=== PATIENT | female | born 1955 | race African-American/Black ===

== ENCOUNTER 2023-02-15 13:47 | Emergency (ER) | payer BC, OTHER ==
[2023-02-15 13:53] VITALS: BP 147/85; PULSE 85; RESP 20; TEMP 97.8; BMI 32.0
[2023-02-15 16:29] LABS: BASO % 0.6 % (0-2.0); EOS % 0.7 % (0-4.5); HEMATOCRIT 40.2 % (32.4-45.2); HEMOGLOBIN 12.9 GM/dL (10.7-15.3); LYMPH % 25.7 % (8-40); MCH 26.6 pg (25.7-33.7); MCHC 32.2 g/dl (32.0-36.0); MEAN CELL VOLUME 82.8 fl (80-96); MEAN PLT VOLUME 8.3 fl (7.5-11.1); MONO % 8.6 % (3.8-10.2); NEUT % 64.4 % (42.8-82.8); PLATELET COUNT 313 10^3/uL (134-434); RBC 4.86 M/mm3 (3.60-5.2); WHITE BLOOD COUNT 6.3 K/mm3 (4.0-10.0)
[2023-02-15 16:36] LABS: INR 1.02 (0.83-1.09); PROTHROMBIN TIME (PATIENT) 11.8 SEC (9.7-13.0)
[2023-02-15 16:39] LABS: ACTIVATED PTT 33.4 SECONDS (25.2-36.5)
[2023-02-15 16:45] LABS: ALBUMIN 3.5 g/dl (3.4-5.0)
[2023-02-15 16:46] LABS: BLOOD UREA NITROGEN 14.6 mg/dL (7-18)
[2023-02-15 16:49] LABS: CREATININE 0.6 mg/dL (0.55-1.3)
[2023-02-15 16:50] LABS: BILIRUBIN,TOTAL 0.2 mg/dL (0.2-1); TOT PROT 7.4 g/dl (6.4-8.2)
== END 2023-02-15 18:23 | disposition home or self-care (01) ==
LOC: JERFT 13:47
DX: S92.411A Displaced fracture of proximal phalanx of right great toe, initial encounter for closed fracture (principal); M79.671 Pain in right foot; M79.89 Other specified soft tissue disorders; W18.40XA Slipping, tripping and stumbling without falling, unspecified, initial encounter; Y93.89 Activity, other specified; Y92.89 Other specified places as the place of occurrence of the external cause
CPT/HCPCS: 36415; 73610-TC-RT-FY; 73630-TC-RT-FY; 76882-TC-RT; 80053; 83880; 85025; 85610; 85730; 93005; 93010; 93971-RT; 99284-25